=== PATIENT | female | born 1945 | race Caucasian/White ===

== ENCOUNTER 2023-05-28 08:58 | Day surgery (SDC) | payer MEDICARE, SELFPAY ==
[2023-05-25 12:22] VITALS: BMI 26.6
[2023-05-28] VITALS (13 sets, daily range): BP systolic 105–156; BP diastolic 50–79; PULSE 65–82; RESP 10–30; TEMP 36.1–36.7; O2SAT 94–100; BMI 26.6
--- NOTE | 2023-05-28 06:00 | DI.RAD.S_ITS ---
PROCEDURE: XR HIP W PEL IF DONE RT 2V INDICATIONS: RIGHT KERRIE TECHNIQUE: 3 intraoperative fluoroscopic spot films COMPARISON: None. FINDINGS: Low resolution intraoperative fluoroscopic spot films show at total hip arthroplasty in appropriate position with overlying instrumentation IMPRESSION: Fluoroscopic guidance Approved by: Davy Scott M.D. on 05/28/2023 at 18:34
[2023-05-28] MEDS: VANCOMYCIN 1,000 MG/200 ML PIGGYBACK 200 MG IV (09:43)
[2023-05-28] MEDS: ACETAMINOPHEN 325 MG TABLET 975 MG PO (09:43)
[2023-05-28] MEDS: LACTATED RINGERS 1,000 ML 42 ML IV ×2 (11:11→13:26)
--- NOTE | 2023-05-28 11:24 | PM.PREOP ---
Pre-operative Note Interval Note History & Physical reviewed/Exam performed by Physician: Yes Changes to H&P: No
--- NOTE | 2023-05-28 11:25 | P.OP_ITS ---
Operative Date/Time/Diagnoses Date of procedure: 05/28/23 Time of procedure: 11:59 Pre-op diagnosis: Right hip OA Post-op diagnosis: same Procedure & Clinicians Procedure: Right total hip arthroplasty anterior approach Same procedure as scheduled: Yes Indications: The patient has had progressively worsening right hip pain with radiographic c hanges consistent with arthritis. Non-operative management has failed and the patient has requested total hip replacement. The risks, benefits and alternatives to surgery were discussed with the patient prior to proceeding. Risks discussed included, but were not limited to, failure to relieve pain, leg length discrepancy, dislocation, stiffness, infection, nerve damage, deep venous thrombosis, pulmonary embolism, stroke, coma, heart attack, permanent paralysis and , as well as the potential need for eventual revision of the prosthetic. Surgeon: Shaniqua Smith Section Plotter Operator: Marshall Farris Anesthesia Type: Spinal Operative Notes Findings: Severe right hip OA, soft bone, adequate stability Closure Type: primary Specimen(s): none sent Prosthetic devices, grafts, tissues, transplants, or devices: and nephew 52 R3, neutral poly liner,one 6.5 mm screw, 36 x +0 cobalt chrome head, size 3 standard polar stem, Estimated Blood Loss (mL): 250 Blood products transfused: none Procedure in detail: The patient was brought to the operating room. Patient was carefully positioned in the supine position. Time-out was performed and antibiotics were given. Anesthesia was induced. She was positioned in the on the table in order to allow hyperextension of the hip. The [] lower extremity was prepped and draped in a standard sterile fashion. An anterior [] hip incision was made 1 fingerbreadth lateral to the anterior superior iliac spine and extended distally towards the greater trochanter. Dissection was carried out through skin and subcutaneous tissues. The skin and subcutaneous tissues were carefully injected with Lidocaine with epi. Superficial hemostasis was achieved. The fascia over the tensor fascia drew was defined and incised with a knife. Two Allis clamps were used to grasp the fascia. Tensor fascia drew was retracted laterally. A gelpi retractor was placed. Dissection was carried out down along the neck. The circumflex vessels were carefully identified and cauterized with the Aqua Mantis. A PA was used intraoperatively for intraoperative retraction and safe implantation of the components. They were also used for hemostasis. There was good visualization of the femoral neck. A Cobra was placed superior to the neck and the gluteus fibers were carefully stripped from that superior aspect of the capsule. A 2nd retractor was placed along the inferior aspect of the neck. The rectus insertion along the capsule was partially released. A 3rd retractor that was then gently placed over the rim of the acetabulum under the rectus. Capsule was carefully incised and released from the intertrochanteric line circumferentially superior to the mid sagittal line and inferiorly to the mid sagittal line until the lesser trochanter was palpable. A tag stitch was placed both in the superior and inferior limb of the capsular insertion. Along the acetabulum capsule was also released up to the mid sagittal 12:00 position. A portion of the labrum was resected. A saw was used to perform an osteotomy at the level of the intertrochanteric line and the junction of the superior femoral neck leaving approximately 1 finger breath of residual inferior neck above the lesser trochanter. A 2nd cut was made along the femoral neck at the base of the head and a napkin ring of neck was removed. Corkscrew was placed in the femoral head and the head was removed without difficulty. Retractors were then repositioned around the acetabulum. Residual labrum was resected and additional osteophytes were removed. A reamer that was 4 mm below the templated size was placed by hand in the acetabulum and it was reamed to centralize the acetabulum. It was then reamed up to 2 under the templated size and fluoroscopy was brought in to confirm the position of the reaming and depth of reaming. I reamed 1 under the anticipated size. A trial cup was placed and noted that it was appropriately sized and fluoroscopy confirmed position and depth. The component was open and inserted without difficulty fluoroscopic imaging was used to confirm that the cup had been adequately seated and was well positioned. It was further stabilized with a single screw. Neutral poly trial liner was placed. The cup was tested and noted to be stable. Attention was then directed to the femur. The femur was gently hyperextended additional capsular release was performed as needed in order to allow adequate visualization of the proximal femur with elevation of the femur. Patient was placed in a hyperextended slightly adducted position with maximum external rotation. Box osteotome was used to check for any residual neck as well as sclerotic bone along the trochanter. [place] pepper was placed in the femur. Additional broaching was performed. Canal finder was used to determine the alignment of the canal and position. Size 1 broach was placed. The canal was then appropriately broached up to the templated size as long as there was adequate stability of the broach and serial advancement of the broach without excessive impingement. Specific attention was directed at avoiding varus attempting to direct the distal aspect of the broach more anteriorly and avoiding excessive anteversion. Trial reduction showed acceptable range of motion, good stability, no posterior impingement, bahai of leg length and appropriate lateral shuck. I also hyperflexed the hip and checked that there was no impingement anteriorly and there was good stability with flexion, adduction and internal rotation. Marcaine and Exparel were injected.. The stem was placed without difficulty. Repeat trial reduction and x-ray showed acceptable overall position, length, and no evidence of the femoral fracture. Final head was placed. Wound was meticulously irrigated with normal saline. The hip was reduced and additional Exparel and Marcaine were injected. The capsule was closed with interrupted nonabsorbable sutures. The fascia of the tensor was closed with interrupted and running Vicryl. No drain was placed. Any tensor fascia drew muscle that appeared to be contused or injured which was a minimal amount was carefully resected. Capsule around the tensor was injected with Exparel and Marcaine. The skin was closed with barbed stitches for the subcutaneous tissue and skin. We also used surgical glue. The wound was dressed sterilely. The hip was meticulously irrigated with normal saline. Patient was transferred to recovery room in satisfactory condition. Complications: none Post-operative Condition: stable Disposition: Acute Care Plan for aftercare: The patient will be maintained on a standard total hip replacement protocol with weight bearing as tolerated and anterior hip precautions. The patient will receive Aspirin and sequential compression devices for DVT prophylaxis. The patient will be discharged home when safe for the home environment.
[2023-05-28] MEDS: CEFAZOLIN 2 GM/100 ML PREMIX 100 ML IV ×2 (12:05→20:38)
[2023-05-28] MEDS: TRANEXAMIC ACID 1,000 MG VIAL 1000 MG INJ ×2 (12:05→14:30)
--- NOTE | 2023-05-28 12:46 | SUR.OPER ---
Patient supine on padded Hoskins table, one arm on padded arm board at <90, other arm padded and secured with tape across patient's chest, both legs secured in padded traction boots and positioned per surgeon, padded post at patient's groin, pressure points checked and padded.
[2023-05-28] MEDS: SODIUM CHLORIDE IRRIG SOLUTION 250 ML, POVIDONE-IODINE SPONGE STICKS 1 APPLIC IRR (12:56)
[2023-05-28] MEDS: BUPIVACAINE LIPOSOME 266 MG/20 ML VIAL INJ (12:56)
[2023-05-28] MEDS: BUPIVACAINE 0.25% (PF) 60 ML, EPINEPHrine 0.3 MG INJ (12:58)
[2023-05-28] MEDS: HYDROMORPHONE 1 MG INJ IV ×2 (15:20→15:25)
[2023-05-28] MEDS: hydrOXYzine 50 MG/ML INJ 25 MG IM (15:25)
--- NOTE | 2023-05-28 15:38 | DI.RAD.S_ITS ---
PROCEDURE: XR HIP W PEL IF DONE RT 2V INDICATIONS: RIGHT TOTAL HIP TECHNIQUE: AP pelvis and lateral view of the right hip acquired. COMPARISON: [facility], [facility], XR HIP W PEL IF DONE RT 2V, 05/28/2023, 13:40. FINDINGS: Bones: Patient is status post right hip arthroplasty, with hardware components in expected positions. The hip joint appears congruent. The visualized bony structures appear intact. Soft tissues: Overlying postoperative changes are noted. No suspicious soft tissue densities. IMPRESSION: Total right hip arthroplasty in place Approved by: Davy Scott M.D. on 05/28/2023 at 16:06
[2023-05-28] MEDS: ONDANSETRON 4 MG/2 ML INJ IV (15:44)
[2023-05-28] MEDS: OXYCODONE IR 5 MG TABLET PO (15:45)
[2023-05-28] MEDS: LACTATED RINGERS 1,000 ML 100 ML IV (16:45)
[2023-05-28] MEDS: ATORVASTATIN 20 MG TABLET PO (20:38)
[2023-05-28] MEDS: DOCUSATE 100 MG CAPSULE PO (20:39)
[2023-05-29 00:20] VITALS: BP 112/66; PULSE 68; RESP 16; TEMP 36.3; O2SAT 93
[2023-05-29] MEDS: ACETAMINOPHEN 325 MG TABLET 650 MG PO ×3 (02:07→14:31)
[2023-05-29] MEDS: LACTATED RINGERS 1,000 ML 100 ML IV (02:41)
[2023-05-29] MEDS: OXYCODONE IR 5 MG TABLET PO ×2 (02:41→07:59)
[2023-05-29] MEDS: CEFAZOLIN 2 GM/100 ML PREMIX 100 ML IV (03:02)
[2023-05-29 04:20] VITALS: BP 138/65; PULSE 68; RESP 18; TEMP 36.4; O2SAT 96
[2023-05-29 06:08] LABS: Hematocrit 27.9 % (36-46); Hemoglobin 9.7 g/dL (12.0-16.0)
--- NOTE | 2023-05-29 06:36 | PC.NURSE ---
shift stacker: Patient is AxOx4, VSS, O2 sat 96% on RA. Denies nausea, SOB, chest pain. Mild pain adequately controlled w/ ordered pain medications. OOB w/ 1 PA, gait belt & FWW to bathroom. Tolerated ambulation well. Right hip incision covered w/ aquacel drsg is CDI, CMS intact. Fall precautions in place, call light within reach.
--- NOTE | 2023-05-29 07:19 | PM.DS.1 ---
History of Present Illness History of Present Illness Date Patient Seen: 05/29/23 Time Patient Seen: 07:19 Chief complaint: OPB Narrative: Operative Date/Time/Diagnoses Date of procedure: 05/28/23 Time of procedure: 11:59 Pre-op diagnosis: Right hip OA Post-op diagnosis: same Procedure & Clinicians Procedure: Right total hip arthroplasty anterior approach Same procedure as scheduled: Yes Indications: The patient has had progressively worsening right hip pain with radiographic changes consistent with arthritis. Non-operative management has failed and the patient has requested total hip replacement. The risks, benefits and alternatives to surgery were discussed with the patient prior to proceeding. Risks discussed included, but were not limited to, failure to relieve pain, leg length discrepancy, dislocation, stiffness, infection, nerve damage, deep venous thrombosis, pulmonary embolism, stroke, coma, heart attack, permanent paralysis and , as well as the potential need for eventual revision of the prosthetic. Surgeon: Shaniqua Smith Hydro Excavation Operator: Marshall Farris Anesthesia Type: Spinal Operative Notes Findings: Severe right hip OA, soft bone, adequate stability Closure Type: primary Specimen(s): none sent Prosthetic devices, grafts, tissues, transplants, or devices: and nephew 52 R3, neutral poly liner,one 6.5 mm screw, 36 x +0 cobalt chrome head, size 3 standard polar stem, Estimated Blood Loss (mL): 250 Blood products transfused: none Discharge Providers Provider Discharge Date: 05/29/23 Consults: 05/28/23 06:00 Consult to Anesthesiology Routine Comment: Consulting Provider: Anesthesiologist Reason for consultation: Regional block for post operative pain control 05/28/23 16:14 Consult to Discharge Planning Routine Comment: Consult to Occupational Therapy Evaluate & Treat Comment: Physician Instructions: Evaluate and treat Consult to Physical Therapy Evaluate & Treat Comment: Physician Instructions: post op KERRIE protocol Discharge provider: Katy Deleon PA-C Summary Hospital Course Discharge Diagnosis: Right hip osteoarthritis, s/p right total hip arthroplasty Hospital Course: Ms Bailey's hospital course was unremarkable. On the morning of POD# 1, she was feeling well and wanted to go home. She was eating without difficulty, and despite some initial trouble, was voiding without difficulty. Her pain was well-controlled with oral medication. She had not yet been evaluated by PT at the time of my visit but had been OOB. Exam Vital Signs (past 8 hours): - 05/29/23 00:20 05/29/23 04:20 Temperature 97.3 F L 97.5 F L Pulse Rate 68 68 Respiratory Rate 16 18 Blood Pressure 112/66 138/65 Pulse Oximetry 93 96 Oxygen Flow Rate 0 Oxygen Delivery Method Room Air Oxygen Flow Rate 0 Narrative Exam Narrative: 5/5 strength in hip flexors, quadriceps, hamstrings, DF, PF, EHL on right. Sensation to light touch intact throughout RLE. Calf soft, compressible, nontender. Aquacel dressing CDI. Objective Labs 05/29/23 05:59 Labs: Laboratory Results - last 24 hr 05/29/23 05:59 Hgb 9.7 L Hct 27.9 L PFSH Medical History (Updated 05/18/23 @ 10:12 by Bharati Hernandez RN) Osteoarthritis prison current use of anticoagulant PSVT (paroxysmal supraventricular tachycardia) (2009) Cardiac pacemaker (2009) Paroxysmal A-fib HTN (hypertension) Dyslipidemia Surgical History (Updated 05/29/23 @ 07:23 by Katy Deleon PA-C) Hx of bilateral cataract extraction Hx of tonsillectomy History of surgery Status post catheter ablation of atrial fibrillation Social History household members: family Smoking Status: Former smoker alcohol intake: current Discharge Assessment & Plan Assessment and Plan Assessment: Right hip osteoarthritis, s/p right total hip arthroplasty Plan of Treatment: Discharge home after PT if PT agrees. Outpt PT, multimodal pain control, resume Xarelto for VTE prophylaxis, f/u in office as scheduled in 2 weeks. Discharge Plan Discharge Plan Patient Disposition: Home Discharge orders & Medications Discharge Orders: Discharge (Order); Ordered 05/29/23 Ordered By: Katy Deleon Prescriptions: New oxycodone 5 mg Tablet 5 mg PO Q4-6H PRN (Reason: Pain, Moderate (4-6)) Qty: 60 0RF docusate sodium 100 mg Capsule 100 mg PO BID PRN (Reason: constipation) Qty: 60 1RF acetaminophen 325 mg Tablet 650 mg PO Q6H PRN (Reason: fever or pain) Qty: 240 0RF Continued acetaminophen 500 mg Tablet 500 mg PO TID PRN (Reason: Pain) metoprolol succinate 25 mg Tablet Extended Release 24 Hr 25 mg PO BEDTIME finasteride 5 mg Tablet 1.25 mg PO DAILY valsartan 160 mg Tablet 160 mg PO BEDTIME rosuvastatin 10 mg Tablet 10 mg PO BEDTIME Xarelto 20 mg Tablet 20 mg PO DAILY Rx Instructions: must administer with evening meal Follow up/Referrals: Shaniqua Smith MD [Physician] - As previously scheduled (Follow up with on 06/10/2023 @ 11:00 am at [facility].) Diet/Activity/Treatments Diet: Diet as Tolerated Activity: Weightbearing as tolerated to right leg. Anterior hip precautions. Cold/Heat Therapy: Ice to hip as needed for pain. Skin/Wound/Dressing Care Report to your healthcare provider any signs of infection, such as:: chills, fever, night sweats, unusual drainage and unusual redness Dressing: May shower. Leave Aquacel dressing in place until follow up in office. No bathing or otherwise soaking incision. Call the office if the dressing becomes saturated inside. Visit Report/Discharge Packet Instructions: DI for Hip Replacement, DI for Prescription Opioid Use Stand Alone Forms: Patient Portal/API, Surgery Discharge Discharge Data Attending Provider: Shaniqua Smith Quality VTE Deep Vein Thrombosis/Pulmonary Embolism Present on Admission: No
[2023-05-29 07:30] VITALS: BP 118/60; PULSE 75; RESP 18; TEMP 36.4; O2SAT 100
[2023-05-29] MEDS: DOCUSATE 100 MG CAPSULE PO (08:01)
[2023-05-29] MEDS: FINASTERIDE 5 MG TABLET 1.25 MG PO (08:01)
--- NOTE | 2023-05-29 10:46 | PT.IIE ---
Current Diagnoses Unilateral primary osteoarthritis, right hip (05/28/23) Presence of unspecified artificial hip joint (05/28/23) Surgery Performed Operation Date: 05/28/23 10:45 Actual Procedures p Total Hip Arthroplasty/Anterior Approach(Right) - Shaniqua Smith MD Surgical History (Last Updated 05/28/23 @ 09:03 by Bharati Hernandez, RN) History of surgery Hx of bilateral cataract extraction Hx of tonsillectomy Status post catheter ablation of atrial fibrillation Medical History (Last Updated 05/18/23 @ 10:12 by Bharati Hernandez RN) Cardiac pacemaker (2009) Dyslipidemia HTN (hypertension) senior care current use of anticoagulant Osteoarthritis Paroxysmal A-fib PSVT (paroxysmal supraventricular tachycardia) (2009) Physical Therapy Inpatient Evaluation/Re-Eval M1 PT/OT-IP Prior Functional Status Start: 05/29/23 09:21 Freq: NEEDED Status: Active Protocol: Document 05/29/23 09:30 MB (Rec: 05/29/23 10:46 MB [id number]) Medical Review Prior Functional Status Medical History Reviewed Yes Diet/Fluid Consistency Regular Communication WNLs Mobility and Gait Mod I with RW, slept on couch Activities of Daily Living and IADL's Mod I in her home with RW Social History Household Members none Living Arrangements House Number of Floors (Floors) 3 or More Floors Number of Stairs To Enter/Railing? 2 steps with right rail to enter and flight of steps to second level at home. She can stay on main level at d/c and her sister will stay with her Home Environment Standard Height Toilet,Walk in Shower Home Equipment Front Wheel Walker,Four Wheel Walker,Shower Seat without Backrest,Stone Splitter Employment Status Retired M2 PT-IP Current Condition Start: 05/29/23 09:21 Freq: NEEDED Status: Active Protocol: Document 05/29/23 09:30 MB (Rec: 05/29/23 10:46 MB [id number]) Physical Therapy Current Condition Current Condition Evaluation Date 05/29/23 Treatment Diagnosis Right anterior KERRIE Onset Date 05/28/03 M3 PT-IP Subjective Start: 05/29/23 09:21 Freq: NEEDED Status: Active Protocol: Document 05/29/23 09:30 MB (Rec: 05/29/23 10:46 MB [id number]) Subjective Physical Therapy Visit Type Type Initial Evaluation Visit Start Time 09:30 Visit Stop Time 10:15 Total Visit Minutes 45 Number of SOCIAL MEDIA MANAGER Visits 0 Physical Therapy Visit Comments Patient Comments Pt and sister with many questions in preparing to d/c today. Pt states that she is most concerned about the steps getting in her house. Therapy Pain Assessment Pain When Pain Assessed During Mobility Pain Present Pain Present Pain Reported Location Right Hip Intensity 8 Scale Used Numeric (0 - 10) Description Sharp Pain Behaviors Facial Grimacing,Guarding, Holding Area Pain Management Techniques Apply Cold,Distraction, Modification of Treatment,Re- positioning,Timing of Activity with Medications M4 PT-IP Mobility and Gait Start: 05/29/23 09:21 Freq: NEEDED Status: Active Protocol: Document 05/29/23 09:30 MB (Rec: 05/29/23 10:46 MB [id number]) PT-Bed Mobility Assessment Rolling Type of Rolling Roll to Left Level of Assist Standby Assistance,1 Person Assistance Supine to Sit Supine to Sit Standby Assistance,1 Person Assistance Sit to Supine Sit to Supine Standby Assistance,1 Person Assistance Scooting Scooting to Edge of Bed Standby Assistance Scooting Up and Down in Bed Standby Assistance PT-Transfer Assessment Sit to and From Stand Sit to and from Stand Contact Guard Assistance,1 Person Assistance Equipment Transfer Assistive Device Gait Belt,Front Wheeled Walker Orthotic/Prosthetic Devices or Brace: No Comments Mobility Comments Pt tends to guard her right leg and lift her leg with her hands to get in the bed and to position self for transfers Gait Assessment Gait Gait Assistance Required: Contact Guard Assist,1 Person Assist Distance (Feet) 100 Able to Maintain Weight Bearing Status Yes During Gait Assistive Devices Assistive Device Gait Belt,Front Wheeled Walker Orthotic/Prosthetic Devices or Brace: No Gait Deviations General Gait Pattern Antalgic,Decreased Stride Length,Flexed Trunk Factors Limiting Gait Function Factors Limiting Gait Function Decreased Activity Tolerance, Decreased Sensation,Limited Range of Motion,Pain Comments Gait Comments Pt gait trains slowly and often with step-to antalgic bennie with use of RW. Ed pt to keep her feet inside the walker and to perform normal step-through bennie when she is ready. Sister is nearby for eval and gait and stair training. Stair Climbing Assessment Evaluation Level of Assist On Stairs Contact Guard Assistance,1 Person Assistance Devices Stair Climbing Assistive Devices Right Railing Technique/Endurance Stair Climbing Direction Ascend and Descend Stair Climbing Technique Step to Step Number of Steps Climbed 3 Query Text: Stair Climbing Set # Repetitions (reps) 1 Comments Stair Climbing Comments PT ed pt and sister how to perform stair training with both hands on right rail and facing it and step-to pattern leading with left foot ascend and right foot descend. Sister then steps into practice supporting pt in the house. PT-Balance Assessment Sitting Balance and Reactions Static Sitting Balance Ability Fair Dynamic Sitting Balance Ability Fair Standing Balance and Reactions Static Standing Balance Ability Fair Dynamic Standing Balance Ability Fair M5 PT-IP Objective Assessments Start: 05/29/23 09:21 Freq: NEEDED Status: Active Protocol: Document 05/29/23 09:30 MB (Rec: 05/29/23 10:46 MB [id number]) Orientation Orientation/Cognition Level of Alertness Alert Orientation Name,Age,Birthday,Month,Date, Year,Day of Week,Place, Situation Language Function Ability No Deficits Noted Safety Awareness Understands Safety Issues Memory Description No Deficits Noted Gross Range of Motion Upper Extremity ROM Assessment Within Functional Limits Lower Extremity ROM Assessment Right Impaired Strength Upper Extremity Strength Assessment Within Functional Limits Lower Extremity Strength Assessment Right Impaired Comments Strength Comments Limited range and strength right LE after surgery and c/o pain today and range is functional for mobility. She has some right LE edema. Sensation Assessment Comments Sensation Comments No paresthesias noted M6 PT-IP Treatment Start: 05/29/23 09:21 Freq: NEEDED Status: Active Protocol: Document 05/29/23 09:30 MB (Rec: 05/29/23 10:46 MB [id number]) Physical Therapy Treatment Exercises Exercises Ankle Pumps,Gluteal Sets,Quad Sets,Heel Slides Education Education Provided Precautions,Weight Bearing Status,Post-Op Packet,Safety Brace Education Patient,Caregiver M7 PT-IP Assessment and Plan Start: 05/29/23 09:21 Freq: NEEDED Status: Active Protocol: Document 05/29/23 09:30 MB (Rec: 05/29/23 10:46 MB [id number]) PT Summary Assessment and Plan Potential Rehabilitation Potential Excellent Status of Condition at Evaluation Stable Summary Impairments Pain,ROM,Strength,Balance,Bed Mobility,Transfers,Gait, Activity Tolerance Progress Towards Goals Progressing Toward Goals,Safe For Discharge Assessment Summary Pt is a pleasant 77 y/o female presenting with increased pain right LE post-op right KERRIE last date. Her sister, who will be her caregiver at d/c, is nearby for evaluation and performed family training during assessment. Pt and her sister have very appropriate questions about WB, gait, steps, bed mobility, home arrangements, hip precautions and HEP and PT answers all questions and provides support and encouragement to pt and her sister. Pt practices transfers, gait, bed mobility and steps with sister nearby. They have no further acute care PT needs. Will d/c PT. Frequency of Treatment Frequency Of Treatment Discharge Precautions Anterior Hip Precautions No Hip Extension,No Hip External Rotation Weight Bearing Status Weight Bearing Status Weight Bear as Tolerated Recommendations To Nursing Amount of Assist Needed 1 Person Assist Discharge Recommendations PT Discharge Recommendations Home with 16/02 Assist Available,Outpatient PT Transportation Needs at Discharge Private Vehicle
--- NOTE | 2023-05-29 11:02 | OT.IP.EVAL ---
Current Diagnoses Unilateral primary osteoarthritis, right hip (05/28/23) Presence of unspecified artificial hip joint (05/28/23) Surgery Performed Operation Date: 05/28/23 10:45 Actual Procedures p Total Hip Arthroplasty/Anterior Approach(Right) - Shaniqua Smith MD Past Medical History (Last Updated 05/18/23 @ 10:12 by Bharati Hernandez, RN) Cardiac pacemaker (2009) Dyslipidemia HTN (hypertension) intermediate manager current use of anticoagulant Osteoarthritis Paroxysmal A-fib PSVT (paroxysmal supraventricular tachycardia) (2009) Surgical History (Last Updated 05/28/23 @ 09:03 by Bharati Hernandez RN) History of surgery Hx of bilateral cataract extraction Hx of tonsillectomy Status post catheter ablation of atrial fibrillation Occupational Therapy Inpatient Evaluation/Re-Eval M1 PT/OT-IP Prior Functional Status Start: 05/29/23 11:02 Freq: NEEDED Status: Active Protocol: Document 05/29/23 11:02 [facility] (Rec: 05/29/23 11:17 [facility] [id number]) Medical Review Prior Functional Status Medical History Reviewed Yes Diet/Fluid Consistency Regular Communication WNLs Mobility and Gait Mod I with RW, slept on couch. Lately pt's sister has been having to assist to get her out of the couch where she sleeps. Activities of Daily Living and IADL's Pt needing assist with LB dressing needs. Social History Household Members none Living Arrangements House Number of Floors (Floors) 3 or More Floors Number of Stairs To Enter/Railing? 2 steps with right rail to enter and flight of steps to second level at home. She can stay on main level at d/c and her sister will stay with her Home Environment Standard Height Toilet,Walk in Shower Home Equipment Front Wheel Walker,Four Wheel Walker,Shower Seat without Backrest,Mental Health Program Director Employment Status Retired Additional Social History Comment Pt's sister staying with her to assist. M2 OT-IP Current Condition Start: 05/29/23 11:02 Freq: Status: Active Protocol: Document 05/29/23 11:02 [facility] (Rec: 05/29/23 11:17 [facility] [id number]) Occupational Therapy Current Condition Current Condition Evaluation Date 05/29/23 Treatment Diagnosis S/P R KERRIE anterior Diagnosis Onset Date 05/28/23 Post Operative Precautions Anterior Hip Precautions No Hip Extension,No Hip External Rotation M3 OT- IP Subjective and Pain Start: 05/29/23 11: Freq: Status: Active Protocol: Document 05/29/23 11: [facility] (Rec: 05/29/23 11:17 [facility] [id number]) OT- Subjective Occupational Therapy Visit Type Type Initial Evaluation Visit Start Time : Visit Stop Time 11: Total Visit Minutes 39 Occupational Therapy Visit Comments Patient Comments Pt agreed to get up to brush her teeth. Patient/Caregiver Goals TO go home. OT Pain Assessment Pain When Pain Assessed During Mobility Pain Present Pain Present Pain Reported Location Right Hip Intensity 8 Scale Used Numeric (0 - 10) M4 OT- IP ADL's Start: 05/29/23 11: Freq: Status: Active Protocol: Document 05/29/23 11: [facility] (Rec: 05/29/23 11:17 [facility] [id number]) OT ADL-Grooming Comments OT Grooming Comments Pt not wanting to do at this time. OT ADL-Oral Care Comments Oral Care Comments Pt not wanting to do at this time. OT ADL-Dressing General Eval Lower Body Dressing Ability Maximum Assistance Comments OT Dressing Comments Spoke to pt and her sister of LB dressing equipment and pt states her sister will just assist her at this time. Educated to dress the right LE in first and take out last. In addition emphasized not to externally rotate her RLE. OT ADL-Toileting Comments OT Toileting Comments Pt not having to go. Suggested use of wet-one, pads/brief at night and get a BSC as the bathroom in 15ft away. Also to call her sister to assist if she has to use the bathroom at night. OT ADL-Bathing Comments OT Bathing Comments Pt to shower at home. Educated that pt can use the FWW to help get into the shower. M5 OT- IP IADL's Start: 05/29/23 11: Freq: Status: Active Protocol: Document 05/29/23 11: [facility] (Rec: 05/29/23 11:17 [facility] [id number]) OT-Instrumental Activities of Daily Living Deficits IADL Deficits Identified Deficits Home Safety Awareness Awareness of Need for Assistance at Home Good Awareness Ability to Problem Solve Emergency Able to Problem Solve Situations Home Safety Comments Pt has a supportive sister that will be staying with her to assist with all needs. M6 OT- IP Functional Cognition Start: 05/29/23 11:02 Freq: Status: Active Protocol: Document 05/29/23 11:02 [facility] (Rec: 05/29/23 11:17 [facility] [id number]) Cognitive Factors Limiting Selfcare Function Cognitive Ability Level of Alertness Alert Patient Orientation Name,Place,Situation Attention Span Ability Capable of Focused Attention, Capable of Sustained Attention Ability to Follow Commands Able to Follow One Step Commands Safety Awareness Decreased Ability to Apply Precautions Cognitive Comments Cognitive Assessment Comments Pt needing reminders to her hip precautions for ADl and mobility needs. Pt's sister has good understanding for all needs. OT- Vision and Hearing OT- Hearing Assessment OT- Hearing Assessment WFL OT- Vision Assessment Visual Acuity Glasses All The Time Visual Attentiveness WFL Occular Pursuits WFL M7 OT- IP Mobility and Balance Start: 05/29/23 11:02 Freq: Status: Active Protocol: Document 05/29/23 11:02 [facility] (Rec: 05/29/23 11:17 [facility] [id number]) OT-Transfer Assessment Sit to and From Stand Sit to and from Stand Contact Guard Assistance Transfers Transfer Ability Contact Guard Assistance Technique Transfer Destination Chair Comments Mobility Comments CGA to close sba to stand to FWW. Able to educated pt's sister how to radha/doff the gait belt. Pt feeling woozy BP sitting 144/64 and standing 138/70. Pt just wanting to sit back down and not brush her teeth at this time. OT- Balance Assessment Sitting Balance and Reactions Static Sitting Balance Ability Normal Dynamic Sitting Balance Ability Good Standing Balance and Reactions Static Standing Balance Ability Good Dynamic Standing Balance Ability Fair M8 OT- IP Objective Assessments Start: 05/29/23 11:02 Freq: Status: Active Protocol: Document 05/29/23 11:02 [facility] (Rec: 05/29/23 11:17 [facility] [id number]) OT Gross Range of Motion Upper Extremity Range of Motion Assessment Within Functional Limits OT Strength Upper Extremity Strength Assessment Within Functional Limits M9 OT- IP Assessment and Plan Start: 05/29/23 11:02 Freq: Status: Active Protocol: Document 05/29/23 11:02 [facility] (Rec: 05/29/23 11:17 [facility] [id number]) OT Summary Assessment and Plan Potential Rehabilitation Potential Good Analytic Complexity at Evaluation Low Summary OT Impairments Pain,Balance,Functional Mobility,Dressing,Toileting, Bathing,Toilet Transfers, Shower Transfers,Activity Tolerance Progress Towards Goals Progressing Toward Goals,Slow Progress due to Pain Assessment Summary Pt low complexity and main barriers are pain and steps. Pt has a very supportive sister who will be staying with her to assist for her needs. Suggested pt get a BSC. Pt to go home with assist and go t outpt PT. Goals Grooming Goal Independent Dressing Goal Minimal Assistance Toileting Goal Independent Bathing Goal Standby Assistance Toilet Transfer Goal Independent Shower Transfer Goal Standby Assistance Days to Meet Goals 2 Frequency of Treatment Frequency Of Treatment Once a Day Treatment Plan OT Treatment Plan ADL Training,Functional Mobility,Patient/Family Education,Discharge Planning Discharge Recommendations OT Discharge Recommendations Home with Assistance, Outpatient PT Home Equipment Needs BSC Transportation Needs at Discharge Private Vehicle
[2023-05-29] MEDS: OXYCODONE IR 10 MG TABLET PO ×2 (12:16→15:22)
--- NOTE | 2023-05-29 13:02 | CM.DANOTE ---
Patient is a 77 yo female who was admitted on 05/28/23 for RTHA. Pt has MCR and AARP for insurance and her PCP is not listed. EMR was reviewed. Per Ortho, pt tolerated procedure well and is voiding independently, pain is controlled and tolerating diet and medically stable to d/c home after PT/OT today. Per PT/OT, recommending safe d/c home with sister assist and outpt PT. SW met bedside with pt and explained role and pt confirms she lives [place] alone and is active and independent at baseline and denies any hx of HH or SNF. Pt confirms she is established with outpt PT already on [place]. Pt's sister is bedside and documentation scanned into EMR confirming sister Maye is DPOA. SW helped to discuss plan of pt getting her filled Rx [facility] by friend picking up on [place] as pt was worried she would not get back home today until after Pharmacy closed. Pt will call friend to pick them up for her today. Pt has reservation for the ferry for the 1615 ferry back to [place] and will have pain medication prior to discharge around [phone] and plans to wear a brief as she does not want to have to attempt getting in and out of the car and [place]. RN updated and no further concerns at this time, sister involved and supportive and confirms she will transport pt back today and will stay with her to assist. Plan: Patient to d/c home today via sister POV and sister will stay with pt for assist and outpt f/u with Ortho and outpt PT. JACEY Delgado Discharge Planning/Care Management CM Discharge Assessment Start: 05/29/23 12:44 Freq: Status: Active Protocol: Document 05/29/23 12:44 [facility] (Rec: 05/29/23 12:46 [facility] [id number]) Discharge Planning Assessment Assigned Teacher Of The Hearing Impaired JACEY Connors DPOA/Assigned Designee Name sister Maye Advance Directives? Yes Advance Directives on File No History Provided By Patient,Family Member,Medical Record Has Patient been admitted in last 30 No days? Prior Living Arrangements House Household Members none Type of transporation used prior to Drives own vehicle admit Independent with ADL's Yes Is patient alert and oriented? Yes Caregiver for Another No Community Services used prior to Physical Therapy admission: DME Already Rented / Owned FWW / Walker Patient/Family Preference OP PT Therapy Barriers to Discharge No Discharge Plan Home Community Services Physical Therapy Transportation Arrangement sister bedside and plans to transport at d/c Referrals Initiated None needed Whiteboard Updated in Patient Room with Yes name and ext. # of Teacher Of The Hearing Impaired Review Status In Process Please Provide Date Initial DC 05/29/23 Assessment Was Performed Next Review Type Continued Stay Review Pre-Anesthesia Assessment Start: 05/18/23 09:17 Freq: Status: Complete Protocol: Document 05/25/23 12:22 [facility] (Rec: 05/18/23 10:27 [facility] [id number]) Pre-Anesthesia Assessment Patient Information Reviewed Via Phone Assessment Assessment Completed With Patient Diagnostic Results BMP/CMP,CBC,EKG,Urinalysis Comment Outside labs/EKG scanned Primary Care Provider Serina Mccabe Comment PCP pre-op 05/05/23 scanned - cleared for talend developer Seen Acid Bath Mixer,Oil Field Technician, Orthopedist Primary Language Luxembourgish Mandrel Press Hand Required No Height 167.64 cm Weight 74.843 kg Body Mass Index (BMI) 26.6 Hearing Ability Normal Visual Assist Glasses Dentition Type Teeth, Natural Present Barriers to Learning None Hx Anesthesia Reactions No Hx Family Anesthesia Reaction No Hx Malignant Hyperthermia No Hx Blood Transfusions No Anesthesia Review Requested No Medical Technologist Generalist No alcohol intake current alcohol intake frequency a few times a week Smoking Status Former smoker how long ago did patient quit smoking Qut in her 20's Substance Use Type does not use Pain Present Pain Reported Musculoskeletal Symptoms Abnormal Gait,Difficulty Walking,Joint Pain History of Falling (Recent or History of No ) Patient is completely paralyzed or No completely immobile Prosthesis or Orthotic Device Front Wheel Walker Mental Status Oriented to own ability Is patient on oxygen? No Does patient have FONTAINE/SOB No Hx Sleep Apnea No Currently Taking a Beta Iban Yes: Metoprolol Can You Climb a Flight of Stairs Without Yes SOB Hx Chest Pain No Hx SOB No Hx Syncope or Dizziness No Anti-Coagulant Therapy Yes: Xarelto-advised to hold 2 days per Cardiology Has a Acid Bath Mixer Yes Acid Bath Mixer name Dr. Lundberg in [place] [phone] Cardiac Testing No Hx Pacemaker/ICD Yes: Pacer form scanned and in surgery folder for dos Pacemaker Rep Required? No Diet Type At Home Regular Dysphagia No Gastrointestinal Symptoms None Bladder Pattern Frequency Urinary Catheter Present No Hx Urinary Self Catheterization No Diabetes No HgbA1C 5.5 Date 03/04/23 Patient No Lactating No Presence of External or Internal Medical Yes: Pacemaker, bilat eye IOLs Devices Have you had any close contact with No someone diagnosed with COVID-19? Received a COVID vaccine? Yes Received all doses? Yes Marital Status / Lives With family Current Living Arrangements House Number of Floors (Floors) 3 or More Floors Number of Stairs To Enter/Railing? 2 Support System Sibling(s) Comment Sister is staying w/pt to assist with care at DC Does the Patient Have Assistance After Yes Surgery Patient Discharge Plan Description Return Home Comment Pt advised one night length of stay per surgeon Additional comment Pt lives on [facility] Feels Safe in Current Environment Yes Been Physically Hurt or Threatened By a No Person in Current Environment Do you have thoughts of harming yourself None or others? Are you currently considering suicide? No Do you have a plan to hurt yourself or No Plan others? Do You Have Any Spiritual Beliefs That No May Affect Your HC Choices? Do You Have Any Cultural Practices That No May Affect Your HC Choices? Who Can We Speak to About Patient's Care Family, friends Identifying Code for Release of Patient Declines to issue Information Health Care Proxy/Next of Kin Maye issa) Health Care Proxy Emergency Contact Name Maye issa) Emergency Contact Advance Directives? Yes Advance Directives on File No Requested Patient Bring Advanced Yes Directives DOS Power of Welfare Supervisor Yes Power of Welfare Supervisor Name Maye issa) Power of Welfare Supervisor PAC Instructions Do not shave/clip surgical site,Durable medical equipment ,Medications to take/avoid, Nasal antibiotic,No ETOH/ petroleum product on skin DOS, NPO,Pre-surgical wash,Sensory aids,Sturdy shoes/comfortable clothes,Do not bring valuables and remove jewelry
--- NOTE | 2023-05-29 16:38 | PC.NURSE ---
Patient A&OX4, VSS, afebrile on RA. She reports pain is severe with ambulation and well controlled at rest. Dressing c/d/i and +CMS to toes. She is cleared for discharge home this afternoon. Sister at bedside supportive. She verbalizes understanding of discharge instructions, medications, activity, site care, s/sx of infection as well as complications. She acknowledges plan for follow up appointment with ortho in two weeks. She is escorted via w/ch at approximately 1540 with all of her belongings to private vehicle with sister for discharge home back to [place]. She states a friend locally [place].
== END 2023-05-29 15:40 | disposition home or self-care (01) ==
LOC: OR 09:00 → AC 14:09
PROVIDERS: Referring Provider Orthopaedic Surgery; Visit Provider Orthopaedic Surgery
PROC: (CPT 27130; principal; 2023-05-28 10:45)
DX: M16.11 Unilateral primary osteoarthritis, right hip (principal); M25.751 Osteophyte, right hip
CPT/HCPCS: 27130; 73502; 76000; 85014; 85018; 97116; 97161; 97165; 97535; C1776; C9290; J0171; J0690; J1100; J1170; J2405; J2704; J3410